=== PATIENT | male | born 1970 | race Two or more races ===

== ENCOUNTER 2019-04-25 15:01 | Emergency (ER) | payer MEDICAID ==
[~2019-04-25] VITALS: Ht 165.1 cm; Wt 89.0 kg
[2019-04-25] MEDS ORDERED: IBUPROFEN 600MG TABLET PO STA (17:04)
[2019-04-25 18:00] LABS: BASOPHILS % 0.8 % (0.0-2.0); EOSINOPHILS % 0.4 % (0.0-5.0); HEMATOCRIT. 44.2 % (42.0-52.0); HEMOGLOBIN. 14.9 g/dL (14.0-18.0); MEAN CORPUSCULAR HEMOGLOBIN 30.2 pg (28.0-32.0); MEAN CORPUSCULAR VOLUME 89.6 fL (80.0-94.0); MEAN PLATELET VOLUME 8.1 fl (7.4-10.4); MONOCYTES % 6.2 % (2.0-8.0); NEUTROPHILS % 71.6 % (40.0-76.0); PLATELET 287 x1000/uL (130-400); RED BLOOD CELL COUNT 4.93 mill/uL (4.7-6.1); RED CELL DISTRIBUTION WIDTH 13.3 % (11.6-14.6)
[2019-04-25 18:03] LABS: CHLORIDE 103 mEq/L (98-107)
[2019-04-25] MEDS ORDERED: DICYCLOMINE 10 MG/5 ML ORAL SYR PO STA (18:58)
[2019-04-25] MEDS ORDERED: VISCOUS LIDOCAINE 2% 15 ML UDC PO STA (18:58)
[2019-04-25] MEDS ORDERED: MAGNESIUM/ALUMINUM HYDROXIDE/SIMETHICONE 30ML UDC PO STA (18:58)
[2019-04-25 20:54] VITALS: BP 122/84
== END 2019-04-25 21:06 | disposition home or self-care (01) ==
LOC: ER 15:01
DX: R07.89 Other chest pain (principal); M54.89 Other dorsalgia; M79.602 Pain in left arm; R03.0 Elevated blood-pressure reading, without diagnosis of hypertension
CPT/HCPCS: 36415; 71045; 80053; 84484; 85025; 93005; 99285

== ENCOUNTER 2019-08-23 13:07 | Emergency (ER) | payer MEDICAID ==
[~2019-08-23] VITALS: Ht 175.3 cm; Wt 81.0 kg
[2019-08-23] MEDS ORDERED: ONDANSETRON 4MG ODT PO STA (15:25)
[2019-08-23] MEDS ORDERED: MAGNESIUM/ALUMINUM HYDROXIDE/SIMETHICONE 30ML UDC PO STA (15:25)
[2019-08-23] MEDS ORDERED: FAMOTIDINE 20MG TABLET PO ONE (15:30)
[2019-08-23 15:47] LABS: BASOPHILS % 0.7 % (0.0-2.0); EOSINOPHILS % 1.1 % (0.0-5.0); HEMATOCRIT. 44.8 % (42.0-52.0); HEMOGLOBIN. 15.5 g/dL (14.0-18.0); LYMPHOCYTES % 30.4 % (20.0-50.0); MEAN CORPUSCULAR HEMOGLOBIN 31.4 pg (28.0-32.0); MEAN CORPUSCULAR VOLUME 90.7 fL (80.0-94.0); MEAN PLATELET VOLUME 7.7 fl (7.4-10.4); MONOCYTES % 5.2 % (2.0-8.0); NEUTROPHILS % 62.6 % (40.0-76.0); PLATELET 300 x1000/uL (130-400); RED BLOOD CELL COUNT 4.94 mill/uL (4.7-6.1); RED CELL DISTRIBUTION WIDTH 13.3 % (11.6-14.6)
[2019-08-23 15:53] LABS: CHLORIDE 104 mEq/L (98-107)
[2019-08-23 15:55] LABS: CLARITY URINE CLEAR (CLEAR); COLOR URINE YELLOW (YELLOW); KETONES URINE NEGATIVE (NEGATIVE); LEUKOCYTE ESTERASE URINE NEGATIVE (NEGATIVE); NITRITE URINE NEGATIVE (NEGATIVE); OCCULT BLOOD URINE NEGATIVE (NEGATIVE); PROTEIN URINE NEGATIVE (NEGATIVE); SPECIFIC GRAVITY URINE 1.007 (1.005-1.030); UROBILINOGEN URINE 0.2 E.U./dL (0.2-1.0)
[2019-08-23 17:40] VITALS: BP 129/78
== END 2019-08-23 17:40 | disposition home or self-care (01) ==
LOC: ER 13:07
DX: R10.13 Epigastric pain (principal); R11.2 Nausea with vomiting, unspecified
CPT/HCPCS: 36415; 76700; 80053; 81003; 83690; 85025; 99284; Q0162

== ENCOUNTER 2022-06-13 03:25 | Emergency (ER) | payer MEDICAID, OTHER ==
[~2022-06-13] VITALS: Ht 175.3 cm; Wt 89.6 kg
[2022-06-13 04:57] LABS: BASOPHILS % 0.9 % (0.0-2.0); EOSINOPHILS % 1.9 % (0.0-5.0); HEMATOCRIT. 43.1 % (42.0-52.0); HEMOGLOBIN. 14.9 g/dL (14.0-18.0); LYMPHOCYTES % 30.7 % (20.0-50.0); MEAN CORPUSCULAR HEMOGLOBIN 30.5 pg (28.0-32.0); MEAN CORPUSCULAR VOLUME 88.2 fL (80.0-94.0); MEAN PLATELET VOLUME 8.2 fl (7.4-10.4); MONOCYTES % 6.8 % (2.0-8.0); NEUTROPHILS % 59.7 % (40.0-76.0); PLATELET 274 x1000/uL (130-400); RED BLOOD CELL COUNT 4.89 mill/uL (4.7-6.1); RED CELL DISTRIBUTION WIDTH 13.5 % (11.6-14.6)
[2022-06-13 05:06] LABS: CHLORIDE 102 mEq/L (98-107)
[2022-06-13] MEDS ORDERED: MORPHINE SULFATE 4 MG/ML CPJ (NOT FOR IM USE) IV STA (05:48)
[2022-06-13] MEDS ORDERED: DICYCLOMINE 10 MG/5 ML ORAL SYR PO STA (05:48)
[2022-06-13] MEDS ORDERED: VISCOUS LIDOCAINE 2% 15 ML UDC PO STA (05:48)
[2022-06-13] MEDS ORDERED: ONDANSETRON HCL 4MG/2ML INJ IV STA (05:48)
[2022-06-13] MEDS ORDERED: MAGNESIUM/ALUMINUM HYDROXIDE/SIMETHICONE 30ML UDC PO STA (05:48)
[2022-06-13 06:12] LABS: CLARITY URINE CLEAR (CLEAR); COLOR URINE YELLOW (YELLOW); KETONES URINE NEGATIVE (NEGATIVE); LEUKOCYTE ESTERASE URINE NEGATIVE (NEGATIVE); NITRITE URINE NEGATIVE (NEGATIVE); OCCULT BLOOD URINE NEGATIVE (NEGATIVE); PH URINE 8.5 (4.5-8.0); PROTEIN URINE NEGATIVE (NEGATIVE); SPECIFIC GRAVITY URINE 1.004 (1.005-1.030); UROBILINOGEN URINE 0.2 E.U./dL (0.2-1.0)
[2022-06-13] MEDS ORDERED: OMEP20CA14 MT (07:57)
[2022-06-13] MEDS ORDERED: ONDA4TAB50 MT (07:57)
[2022-06-13 09:00] VITALS: BP 112/65
== END 2022-06-13 09:33 | disposition home or self-care (01) ==
LOC: ER 03:25
DX: R10.13 Epigastric pain (principal)
CPT/HCPCS: 36415; 74176; 80053; 81003; 83690; 84484; 85025; 93005; 96374; 96375; 99285; J2270; J2405; Z7610